=== PATIENT | female | born 1995 | race Caucasian/White ===

== ENCOUNTER 2020-02-06 09:00 | Outpatient (REF) | payer OTHER, SELFPAY | END 2020-02-06 09:01 | disposition home or self-care (01) | LOC: HO.LAB 09:00 | PROVIDERS: Visit Provider Internal Medicine | DX: Z20.828 Contact with and (suspected) exposure to other viral communicable diseases (principal) | CPT/HCPCS: C9803; U0003 ==

== ENCOUNTER 2021-09-23 20:55 | Emergency (ER) | payer OTHER, SELFPAY ==
--- NOTE | 2021-09-23 21:00 | ECG_ITS ---
Test Reason : CHEST PAIN Blood Pressure : / mmHG Vent. Rate : 103 BPM Atrial Rate : 103 BPM P-R Int : 144 ms QRS Dur : 098 ms QT Int : 352 ms P-R-T Axes : 074 080 035 degrees QTc Int : 461 ms Sinus tachycardia Incomplete right bundle branch block Nonspecific ST abnormality Abnormal ECG No previous ECGs available Referred By: Generic ED Physician Electronically Signed By:Jayden Ang
[2021-09-23 21:06] VITALS: BP 130/79; PULSE 105; O2SAT 100
[2021-09-23 21:49] VITALS: BP 121/64; PULSE 89; RESP 18; TEMP 36.9; O2SAT 97; BMI 20.9
== END 2021-09-23 22:19 | disposition left against medical advice (07) ==
PROVIDERS: Emergency Provider Emergency Medicine
DX: R07.9 Chest pain, unspecified (principal)
CPT/HCPCS: 93005; 99283

== ENCOUNTER 2021-10-05 18:23 | Emergency (ER) | payer OTHER, SELFPAY | END 2021-10-05 19:52 | disposition left against medical advice (07) | PROVIDERS: Emergency Provider Emergency Medicine; PCP Physician Assistant Medical | DX: M54.50 Low back pain, unspecified (principal); R10.9 Unspecified abdominal pain ==